=== PATIENT | male | born 1950 | race Caucasian/White ===

== ENCOUNTER → 2017-08-30 | Outpatient (CLI) | payer MEDICARE, OTHER | END | disposition home or self-care (01) | LOC: CFH 07:07 | PROVIDERS: ATTEND Nurse Practitioner Family | DX: K43.9 Ventral hernia without obstruction or gangrene (principal) | CPT/HCPCS: 76705 ==

== ENCOUNTER → 2017-10-03 | Outpatient (CLI) | payer MEDICARE, OTHER ==
[~2017-10-03] MED LIST: ALA PO; ASCO10004 PO; ASPI-496 PO; FISH OIL PO; GINK60TA4 PO; GLUC1TAB21 PO; GOTU KOLA PO; LISI-170 PO; MULT-516 PO; RANI75TA12 PO; UBID1CAP52 PO; [UNRECOGNIZED DRUG - CODE] PO
[2017-10-03 09:11] LABS: ALANINE AMINOTRANSFERASE 23 U/L (12-78); ANION GAP 7 mmol/L (5-15); CALCIUM 8.8 mg/dL (8.5-10.1); CHLORIDE 111 mmol/L (98-107); CREATININE 1.26 mg/dL (0.7-1.3)
[2017-10-03 09:13] LABS: ALKALINE PHOSPHATASE 86 U/L (45-117); BILIRUBIN,TOTAL 1.1 mg/dL (0.2-1.0); TOTAL PROTEIN 7.1 g/dL (6.4-8.2)
== END | disposition home or self-care (01) ==
LOC: STAR 08:10
PROVIDERS: ATTEND Surgery
DX: Z01.818 Encounter for other preprocedural examination (principal); R94.31 Abnormal electrocardiogram [ECG] [EKG]
CPT/HCPCS: 36415; 80053; 93005

== ENCOUNTER 2017-10-08 07:55 | Day surgery (SDC) | payer MEDICARE, OTHER ==
[~2017-10-08] VITALS: Ht 182.9 cm; Wt 98.4 kg
[~2017-10-08 07:55] MED LIST changes: +BUPIVACAINE/PF 0.5% ONE; +EPINEPHRINE 1 MG/ML, 1ML ONE
[2017-10-08] MEDS ORDERED: LACTATED RINGERS 1,000 ML IV SCH (08:26)
[2017-10-08 08:30] VITALS: BP 148/96
[2017-10-08] MEDS ORDERED: MIDAZOLAM 1 MG/ML, 2ML ONE (09:20)
[2017-10-08] MEDS ORDERED: FENTANYL PF 250 MCG/5ML ONE (09:20)
[2017-10-08] MEDS ORDERED: SUCCINYLCHOLINE 20 MG/ML, 10ML ONE (10:31)
[2017-10-08] MEDS ORDERED: ROCURONIUM 10MG/ML,5ML ONE (10:31)
[2017-10-08] MEDS ORDERED: ONDANSETRON 2MG/ML, 2ML ONE (10:31)
[2017-10-08] MEDS ORDERED: CEFAZOLIN 1,000 MG ONE (10:31)
[2017-10-08] MEDS ORDERED: GLYCOPYRROLATE 0.2MG/1ML, 5ML ONE (10:31)
[2017-10-08] MEDS ORDERED: PROMETHAZINE 12.5 MG SUPP PR PRN (11:00)
[2017-10-08] MEDS ORDERED: PROMETHAZINE 25 MG/ML, 1ML IV PRN (11:00)
[2017-10-08] MEDS ORDERED: ACETAMINOPHEN 325 MG TABLET PO PRN (11:00)
[2017-10-08] MEDS ORDERED: ONDANSETRON 2MG/ML, 2ML IVPush PRN (11:00)
[2017-10-08] MEDS ORDERED: HYDROcodone/APAP 7.5-325MG/15ML UDC PO PRN (11:00)
[2017-10-08] MEDS ORDERED: LABETALOL 5MG/ML, 20ML IV PRN (11:00)
[2017-10-08] MEDS ORDERED: HYDROmorphone 1 MG/ML, 1ML IV PRN (11:00)
[2017-10-08] MEDS ORDERED: OXYcodone 5 MG/5 ML ORAL.SOL UDC PO PRN (11:00)
[2017-10-08] MEDS ORDERED: FENTANYL PF 100 MCG/2ML IV PRN (11:00)
[2017-10-08] MEDS ORDERED: HYDROcodone/APAP 7.5-325MG/15ML UDC ONE (11:40)
== END 2017-10-08 13:40 ==
LOC: OUT 07:55
PROVIDERS: ATTEND Surgery
DX: K43.9 Ventral hernia without obstruction or gangrene (principal); I10 Essential (primary) hypertension; K21.9 Gastro-esophageal reflux disease without esophagitis; Z90.49 Acquired absence of other specified parts of digestive tract; Z98.52 Vasectomy status; Z98.890 Other specified postprocedural states; Z72.89 Other problems related to lifestyle
CPT/HCPCS: 49652; C1781; J0171; J0330; J0690; J2250; J2405; J3010; J3490; J7120

== ENCOUNTER 2017-12-29 21:54 | Emergency (ER) | payer MEDICARE, OTHER ==
[~2017-12-29] VITALS: Ht 182.9 cm; Wt 98.3 kg
[~2017-12-29 21:54] MED LIST changes: -BUPIVACAINE/PF 0.5% ONE; -EPINEPHRINE 1 MG/ML, 1ML ONE
[2017-12-29] MEDS ORDERED: FLUORESCEIN OPHTHALMIC 1 MG STRIP ONE (22:12)
[2017-12-29] MEDS ORDERED: PROPARACAINE OPHTH 0.5%, 15ML ONE (22:12)
[2017-12-29] MEDS ORDERED: PROPARACAINE OPHTH 0.5%, 15ML LEFTEYE ONE (22:30)
[2017-12-29] MEDS ORDERED: FLUORESCEIN OPHTHALMIC 1 MG STRIP LEFTEYE ONE (22:30)
[2017-12-29 23:29] VITALS: BP 136/78
== END 2017-12-29 23:33 | disposition left against medical advice (07) ==
LOC: ED 23:27
DX: H53.131 Sudden visual loss, right eye (principal); I10 Essential (primary) hypertension
CPT/HCPCS: 99283; 99284